=== PATIENT | male | born 1940 | race Caucasian/White ===

== ENCOUNTER → 2018-08-13 | Outpatient (CLI) | payer MEDICARE | END | disposition home or self-care (01) | LOC: OIH 10:09 | PROVIDERS: ATTEND Nurse Practitioner Adult Health | DX: R05 Cough (principal); M47.815 Spondylosis without myelopathy or radiculopathy, thoracolumbar region | CPT/HCPCS: 71046 ==

== ENCOUNTER → 2018-09-30 | Outpatient (CLI) | payer MEDICARE | END | disposition home or self-care (01) | LOC: OIH 11:27 | PROVIDERS: ATTEND Nurse Practitioner Adult Health | DX: I51.7 Cardiomegaly (principal); R05 Cough | CPT/HCPCS: 71046 ==

== ENCOUNTER → 2025-06-02 | Outpatient (CLI) | payer OTHER ==
[~2025-06-02] MED LIST: IOHEXOL-350 75 ML VIAL IV ONE
--- NOTE | 2025-06-02 22:07 | HMCIMG ---
EXAM: CTA CHEST/THORAX WITHOUT AND WITH INTRAVENOUS CONTRAST Technique: Helical computed tomography of the chest was performed without and with intravenous contrast in arterial phase with multiplanar reconstructions. Slice thickness and reconstruction planes were standard for angiographic assessment. Dose metrics: CTDIvol 197 mGy; DLP 668.69 mGy???cm. Contrast: Standard dose of intravenous contrast administered. Clinical Information: Shortness of breath; history of aortic aneurysm. Findings: Soft tissues: No abnormality identified. Lungs and large airways: Tracheobronchial tree is patent. No airspace consolidation. Paraseptal cystic change in both lower lobes. Linear atelectatic bands in the left lower lobe. Peripheral pleural-based solid nodule in the superior segment of the left lower lobe measuring 1.8 cm, demonstrating a positive bronchus sign ([id number]:I23). Few tiny scattered pneumatoceles in both lungs. No additional discrete nodules identified. Pleura: Trace bilateral pleural effusions. No pneumothorax. Heart and pericardium: Severe coronary artery calcifications. Left ventricular hypertrophy is suggested on limited assessment. No pericardial effusion. Aorta: Moderate aortic atherosclerotic calcifications. Mild dilation of the proximal ascending aorta measuring 4.2 cm. No dissection. Pulmonary arteries: No filling defects to the segmental level to suggest pulmonary embolism. Lymph nodes: No enlarged mediastinal, hilar, or axillary lymph nodes. Mediastinum and aiden: Unremarkable. Chest wall and lower neck: No abnormality identified. Bones/joints: Degenerative changes in the thoracic spine without acute osseous abnormality. Upper abdomen: No acute abnormality identified on limited [id number]. Impression: * Peripheral pleural-based solid nodule in the superior segment of the left lower lobe measuring 1.8 cm with a positive bronchus sign ([id number]:I23). Given size and morphology, recommend further evaluation with positron emission tomography/computed tomography and tissue diagnosis (bronchoscopic or percutaneous approach; the positive bronchus sign may facilitate bronchoscopic access). Short-interval chest computed tomography in approximately 3 months can be considered if immediate tissue sampling is deferred. * Mild dilation of the proximal ascending aorta measuring 4.2 cm with moderate aortic atherosclerosis; recommend blood pressure optimization and surveillance with gated computed tomography angiography or magnetic resonance angiography at 12 months (earlier if symptoms, rapid growth, or connective tissue disease). * Severe coronary artery calcifications and suggested left ventricular hypertrophy; correlate with cardiovascular risk assessment and consider cardiology follow-up. * Trace bilateral pleural effusions with left lower lobe atelectasis; correlate with volume status and symptoms. * Paraseptal emphysema pattern at the lung bases and scattered tiny pneumatoceles. * No pulmonary embolism identified. /[place]
== END | disposition home or self-care (01) ==
LOC: RAH 08:47
PROVIDERS: ATTEND Internal Medicine Cardiovascular Disease
DX: I70.0 Atherosclerosis of aorta (principal); I71.9 Aortic aneurysm of unspecified site, without rupture; R06.02 Shortness of breath; J43.8 Other emphysema; J98.11 Atelectasis; I25.10 Atherosclerotic heart disease of native coronary artery without angina pectoris; M47.814 Spondylosis without myelopathy or radiculopathy, thoracic region; Z86.79 Personal history of other diseases of the circulatory system
CPT/HCPCS: 71275; Q9967